=== PATIENT | male | born 1970 | race Caucasian/White ===

== ENCOUNTER → 2020-06-17 | Outpatient (CLI) | payer OTHER ==
[2020-06-17 15:43] LABS: Basophils # (A) 0.1 k/uL (0-0.2); Basophils % (A) 1 %; Eosinophils # (A) 0.3 k/uL (0-0.7); Eosinophils % (A) 4 %; HCT 45.6 % (39.0-53.0); HGB 15.6 gm/dL (13.0-17.5); Lymphocytes # (A) 3.3 k/uL (1.0-4.8); Lymphocytes % (A) 44 %; MCH 32.6 pg (25.0-35.0); MCHC 34.2 g/dL (31.0-37.0); MCV 95.4 fL (80.0-100.0); Mean Platelet Volume 7.4; Monocytes # (A) 0.3 k/uL (0-1.0); Monocytes % (A) 4 %; Neutrophils # (A) 3.3 k/uL (1.3-7.7); Neutrophils % (A) 45 %; Platelet Count 190 k/uL (150-450); RBC 4.78 m/uL (4.30-5.90); RDW 12.8 % (11.5-15.5); WBC 7.5 k/uL (3.8-10.6)
[2020-06-17 23:58] LABS: African American GFR (CKD) 115.8 (60.0-200.0); Albumin 4.7 g/dL (3.80-4.90); Albumin/Globulin Ratio 1.74 (1.60-3.17); Anion Gap 6.8 mmol/L (4.00-12.00); BUN/Creat Ratio 17.78 Ratio (12.00-20.00); Calcium 9.8 mg/dL (8.7-10.3); Carbon Dioxide 27.2 mmol/L (21.6-31.8); Chol/HDL Ratio 5.87; Globulin 2.7 g/dL (1.6-3.3); LDL Cholesterol,Calculated 201.8 mg/dL (0.0-131.0); Non-African American GFR(CKD) 99.9 (60.0-200.0); Potassium 4.4 mmol/L (3.5-5.5); Total Bilirubin 0.4 mg/dL (0.2-1.2); Total Protein 7.4 g/dL (6.2-8.2); VLDL Calculation 56.2 mg/dL (5.00-40.00)
== END | disposition home or self-care (01) ==
LOC: LABWHC1 14:39
PROVIDERS: ATTEND Family Medicine
DX: R07.9 Chest pain, unspecified (principal); E78.2 Mixed hyperlipidemia
CPT/HCPCS: 36415; 80053; 80061; 84443; 85025

== ENCOUNTER → 2020-06-29 | Outpatient (CLI) | payer OTHER ==
--- NOTE | 2020-06-29 17:32 | XR ---
EXAMINATION TYPE: XR chest 2V DATE OF EXAM: 06/29/2020 COMPARISON: None HISTORY: 49-year-old male intermittent chest pain, R07.9, E78.2. TECHNIQUE: Frontal and lateral views FINDINGS: The cardiomediastinal silhouette, aorta, and pulmonary vasculature are within normal limits. Mild hyp erinflation. Lungs and pleural spaces are clear. IMPRESSION: Mild hyperinflation may relate to a depth of inspiration or underlying emphysema. Clinically correlat e. Otherwise, no acute cardiopulmonary process.
== END | disposition home or self-care (01) ==
LOC: RADXRMAIN 15:19
PROVIDERS: ATTEND Family Medicine
DX: R91.8 Other nonspecific abnormal finding of lung field (principal); E78.2 Mixed hyperlipidemia; R07.9 Chest pain, unspecified
CPT/HCPCS: 71046; 93005

== ENCOUNTER → 2020-07-26 | Outpatient (CLI) | payer OTHER ==
--- NOTE | 2020-07-26 12:48 | ECHOF ---
Referral Reason:R07.9 chest pain MEASUREMENTS -------- HEIGHT: 182.9 cm WEIGHT: 97.5 kg BP: RVIDd: 2.7 cm (< 3.3) IVSd: 1.3 cm (0.6 - 1.1) LVIDd: 4.5 cm (3.9 - 5.3) LVPWd: 1.1 cm (0.6 - 1.1) IVSs: 1.7 cm LVIDs: 3.0 cm LVPWs: 1.0 cm LAESV Index (A-L): 20.26 ml/m Ao Diam: 3.5 cm (2.0 - 3.7) AV Cusp: 2.4 cm (1.5 - 2.6) LA Diam: 4.2 cm (2.7 - 3.8) MV EXCURSION: 14.991 mm (> 18.000) MV EF SLOPE: 52 mm/s (70 - 150) EPSS: 0.3 cm MV E Galen: 0.52 m/s MV DecT: 162 ms MV A Galen: 0.51 m/s MV E/A Ratio: 1.03 RAP: 5.00 mmHg RVSP: 22.26 mmHg FINDINGS -------- Sinus rhythm. This was a technically good study. The left ventricular size is normal. There is mild concentric left ventricular hypertrophy. Overa ll left ventricular systolic function is normal with, an EF between 55 - 60 %. The right ventricle is normal in size. Normal LA size by volume 22+/-6 ml/m2. The right atrial size is normal. The aortic valve is trileaflet, and appears structurally normal. No aortic stenosis or regurgitation. Mild mitral regurgitation is present. Mild tricuspid regurgitation present. Right ventricular systolic pressure is normal at < 35 mmHg. Trace/mild (physiologic) pulmonic regurgitation. The aortic root size is normal. Echo free space represents a pericardial fat pad. CONCLUSIONS -------- 1. Sinus rhythm. 2. This was a technically good study. 3. The left ventricular size is normal. 4. There is mild concentric left ventricular hypertrophy. 5. Overall left ventricular systolic function is normal with, an EF between 55 - 60 %. 6. The right ventricle is normal in size. 7. Normal LA size by volume 22+/-6 ml/m2. 8. The right atrial size is normal. 9. The aortic valve is trileaflet, and appears structurally normal. No aortic stenosis or regurgitati on. 10. Mild mitral regurgitation is present. 11. Mild tricuspid regurgitation present. 12. Trace/mild (physiologic) pulmonic regurgitation. 13. The aortic root size is normal. 14. Echo free space represents a pericardial fat pad. EDUCATION NURSE: Joanie Watt RDCS
--- NOTE | 2020-07-26 16:41 | P.STRESS ---
- Stress Test Note Stress Test Results/Findings: Exam Performed: stress test Exam Date: 07/26/20 Reason for Exam: CHEST PAIN Height: 5 ft 11 in Weight: 100 kg Protocol: MIGUEL Stage: 3 Duration of Exercise: 9:00 MINUTES Resting Heart Rate: 77 Resting Blood Pressure: 133/99 Maximum Achieved Heart Rate: 147 Maximum Achieved Blood Pressure: 202/89 85% PMHR: 145 100% PMHR: 171 METS: 10.5 Technologist Comment: Stress Test Results/Findings: Baseline heart rate 77 beats a minute, Baseline blood pressure 133/99 mmHg Baseline twelve-lead ECG showed normal sinus rhythm and normal cardiac intervals Patient exercised on a Miguel protocol for 9 minutes, achieving a peak heart rate of 147 beats a minute. Hypertensive response to exercise. Peak blood pressure 202/89 mmHg There was no ECG ms for ischemia No arrhythmias noted Impression good excess capacity No ECG is ischemia Hypertensive response
== END | disposition home or self-care (01) ==
LOC: RADNMMAIN 10:41
PROVIDERS: ATTEND Family Medicine
DX: I08.1 Rheumatic disorders of both mitral and tricuspid valves (principal); I37.1 Nonrheumatic pulmonary valve insufficiency; I10 Essential (primary) hypertension; E78.2 Mixed hyperlipidemia; F43.12 Post-traumatic stress disorder, chronic; F41.1 Generalized anxiety disorder
CPT/HCPCS: 93017; 93306